=== PATIENT | male | born 1965 | race Caucasian/White ===

== ENCOUNTER 2020-11-21 14:42 | Emergency (ER) | payer OTHER, SELFPAY ==
[2020-11-21 14:59] VITALS: BP 146/73; PULSE 62; RESP 16; TEMP 36.8; O2SAT 98; BMI 33.5
--- NOTE | 2020-11-21 15:00 | XR_ITS ---
WS: [id number] Portable AP upright chest, 11/21/2020 Clinical Data: dyspnea/cough Comparison: None. Findings: No nodules, masses or effusions are seen. The heart is normal. The pulmonary vascularity is not increased. No pneumonia or pneumothorax is seen. XR/XR chest 1V portable [id number] Impression: Negative chest.
[2020-11-21 15:01] VITALS: BP 171/94; PULSE 69; O2SAT 97
[2020-11-21 16:00] VITALS: BP 139/70; PULSE 62; O2SAT 96
[2020-11-21 16:02] LABS: Urine Appearance Clear (CLEAR); Urine Color Yellow (Yellow)
[2020-11-21 16:03] LABS: Add Urine Microscopic? YES; Bilirubin Urine Neg (Negative); Blood Urine 2+ (Negative); Glucose Urine UA Norm (Normal); Ketones Urine 2+ (Negative); Leukocyte Esterase Urine Negative (Negative); Nitrate Urine Negative (Negative); Protein Urine Trace (Negative); Urobilinogen Urine Norm (Negative); pH Urine 5 (5-7)
[2020-11-21 16:04] LABS: Add Urine Culture? No; Bacteria Urine 1+ /hpf; Mucus Urine 3+ /hpf; RBC Urine 0-4 /hpf (0-2); Squamous Epithelial Cell Urine 0-4 /hpf (0-5)
--- NOTE | 2020-11-21 17:01 | ECG_ITS ---
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 Measurements Intervals [place] Rate: 52 P: 46 OR: 205 QRS: 17 QRSD: 83 T: 30 QT: 454 QTc: 425 Interpretive Statements SINUS BRADYCARDIA No previous ECG available for comparison Electronically Signed On 11-21-2020 18:56:05 CDT by Harish Hodges M.D. [id number]
[2020-11-21 17:07] LABS: Basophils % 0.2 %; Eosinophils % 0.1 %; Hematocrit 46.6 % (42.0-52.0); Hemoglobin 15.5 g/dL (11.7-16.6); Lymphocytes # 0.9 10^3/uL (0.8-4.8); Lymphocytes % 6.9 %; Mean Corpuscular HGB Conc 33.3 g/dL (30.0-36.0); Mean Corpuscular Hemoglobin 29.4 pg (28.0-34.0); Mean Corpuscular Volume 88.4 fL (80-94); Mean Platelet Volume 9.7 fL (7.4-10.4); Monocytes # 0.6 10^3/uL (0.2-0.9); Monocytes % 4.4 %; Neutrophils # 11.78 10^3/uL (1.8-7.7); Nucleated Red Blood Cells % 0 %; Platelet Count 209 10^3/cmm (130-400); Red Blood Count 5.27 10^6/uL (4.1-5.3); Red Cell Distribution Width 12.2 % (12.1-15.1); White Blood Count 13.4 10^3/uL (4.0-10.0)
--- NOTE | 2020-11-21 17:19 | ED_ITS ---
HPI - Abdominal Pain General: Chief Complaint: Abdominal Pain Stated Complaint: abd pain, flank pain, nausea Time Seen by Provider: 11/21/20 17:11 History of Present Illness: HPI narrative: Patient is a 55-year-old male who comes to the ED with abdominal pain. Patient was seen at [facility] and he was sent here to the ED to check for kidney stone. Pain started at around 10 AM this morning. He said it was not abrupt onset left flank pain. Said the pain comes around into the left lower quadrant of his abdomen. He took an ibuprofen and his pain has improved greatly. He says he rates his pain currently a 4 out of 10. Patient denies any history of kidney stones. He states he has had decreased urine output today but denies any hematuria. Denies fever, chills, chest pain, shortness of breath, nausea/vomiting or bowel symptoms. Associated Symptoms: Denies chills, constipation, diarrhea, dysuria, fever(s), hematochezia, hematuria, nausea and vomiting Review of Systems Const: Denies: fever(s), chills or fatigue Eyes: Denies: change in vision or eye discomfort ENMT: Denies: throat pain, odynophagia, nasal discharge or nasal congestion Card: Denies: chest pain, palpitations, edema, swelling of feet/ankles, dyspnea on exertion or orthopnea Resp: Denies: dyspnea, productive cough or non-productive cough GI: Reports: abdominal pain (LLQ); Denies: nausea, vomiting, diarrhea, constipation or hematochezia : Reports: flank pain (left) and oliguria; Denies: difficulty urinating, dysuria or hematuria Musc: Denies: neck pain, back pain or extremity swelling Skin/Breast: Denies: rash or new lesions Neuro: Denies: headache(s), numbness in extremities or weakness in extremities Physical Exam Narrative: EXAM NARRATIVE: Patient is a nontoxic-appearing 55-year-old male who is sitting comfortably on exam chair when I enter the room. He is showing no signs of any acute distress or pain. Const: COMMON NORMALS: no acute distress, patient oriented x3, healthy appearing and alert GENERAL APPEARANCE: cooperative and comfortable HENMT: COMMON NORMALS: normocephalic HEAD & SCALP: normocephalic MOUTH: Normal oral and palatal mucosa present THROAT: posterior oropharynx normal and uvula midline Neck/C-Spine: COMMON NORMALS: supple GENERAL: Yes normal visual inspection Resp: COMMON NORMALS: normal respiratory effort, No retractions, No use of accessory muscles and clear to auscultation bilaterally AUSCULTATION: clear to auscultation bilaterally Cardio: COMMON NORMALS: regular rate, regular rhythm, S1 normal heart sound present, S2 normal heart sound present, No gallops present (Cardio), No clicks present (Cardio), No murmurs present (Cardio) and Peripheral pulses 2+ throughout RATE: regular rate RHYTHM: regular rhythm HEART SOUNDS: S1 normal heart sound present and S2 normal heart sound present PERIPHERAL PULSES: Peripheral pulses 2+ throughout GI: COMMON NORMALS: Normal to inspection, nondistended, normoactive bowel sounds present, Soft to palpation and no masses PALPATION: Yes Soft to palpation and Yes Tenderness to palpation present (GI) Details: LLQ and other (left flank) : BLADDER/KIDNEY EXAM: Yes CVA tenderness on the left Back/Pelvis: GENERAL BACK: Yes CVA tenderness Extremity: COMMON NORMALS: normal to inspection Neuro: COMMON NORMALS: patient oriented x3 SENSORIUM/ORIENTATION: Yes alert GAIT: Yes Normal gait present Skin: GENERAL SKIN EXAM: dry skin Course Vital Signs: Vital signs: Vital Signs Temperature 98.2 F 11/21/20 14:59 Pulse Rate 64 11/21/20 19:22 Respiratory Rate 16 11/21/20 14:59 Blood Pressure 160/96 11/21/20 19:22 Pulse Oximetry 99 11/21/20 19:22 MDM - Abdominal Pain MDM Narrative: Medical decision making narrative: Patient is a 55-year-old male who comes to the ED with left flank pain. Patient appears nontoxic and is in no acute distress while here in the ED. He has some left flank and left CVA tenderness. White blood cell count 13 the rest of CBC and CMP were unremarkable. UA was positive for blood but no signs of any urinary tract infections. EKG showed sinus bradycardia, 52 bpm, no ST segment elevation or depression seen. CT of the abdomen showed 3 mm stone at the left UVJ. I placed an order with case management for patient to be referred to Dr. Cooper the urologist. Patient was given IV fluids, tamsulosin and Toradol while here in the ED. He was discharged home with a written prescription for hydrocodone, the pros and, Zofran and tamsulosin. He was told to strain urine to catch stone to bring to Dr. Cooper's office for further analysis. Return to ED precautions given. Told patient he will receive a call in the next couple days to get an appointment set up with Dr. Cooper. Patient understood agree with plan. Lab Data: Attestation: I reviewed the patient's lab results. Labs: Lab Results 11/21/20 11/21/20 11/21/20 Range/Units 15:06 16:58 16:58 WBC 13.4 H (4.0-10.0) 10^3/ uL RBC 5.27 (4.1-5.3) 10^6/u L Hgb 15.5 (11.7-16.6) g/dL Hct 46.6 (42.0-52.0) % MCV 88.4 (80-94) fL MCH 29.4 (28.0-34.0) pg MCHC 33.3 (30.0-36.0) g/dL RDW 12.2 (12.1-15.1) % Plt Count 209 (130-400) 10^3/c mm MPV 9.7 (7.4-10.4) fL Neut % (Auto) 88.0 % Lymph % (Auto) 6.9 % [place] % (Auto) 4.4 % Eos % (Auto) 0.1 % Baso % (Auto) 0.2 % Neut # (Auto) 11.78 H (1.8-7.7) 10^3/u L Lymph # (Auto) 0.9 (0.8-4.8) 10^3/u L [place] # (Auto) 0.6 (0.2-0.9) 10^3/u L Eos # (Auto) 0.0 (0.0-0.8) 10^3/u L Baso # (Auto) 0.0 (0.0-0.1) 10^3/u L Nucleated RBC % (a uto) 0 % Nucleated RBCs # 0.0 /100WBC Sodium 140 (136-145) mmol/L Potassium 4.4 (3.5-5.1) mmol/L Chloride 104 (98-107) mmol/L Carbon Dioxide 25 (22-29) mmol/L Anion Gap 15.4 (5-19) BUN 14 (6-20) mg/dL Creatinine 1.1 (0.7-1.2) mg/dL GFR Calculation 69.2 L (90-130) mL/min Glucose 98 (65-115) mg/dL Calculated Osmolal ity 290 (285-295) mOsm/k g Calcium 8.8 (8.5-10.5) mg/dL Total Bilirubin 0.9 (0.15-1.2) mg/dL AST 16 (0-40) U/L ALT 18 (0-41) U/L Alkaline Phosphata se 95 (40-130) IU/L Creatine Kinase 334 H* (39-308) U/L Troponin T Baselin e (0-15) ng/L Troponin T 120 Min [place] (0-15) ng/L Delta Troponin T (0-10) ABS# Total Protein 7.4 (6.6-8.7) g/dL Albumin 4.5 (3.5-5.2) g/dL Globulin 2.9 (1.3-4.6) g/dL Lipase 44 (13-60) U/L Urine Color Yellow (Yellow) Urine Appearance Clear (CLEAR) Urine pH 5 (5-7) Ur Specific Gravit y 1.030 (1.005-1.030) Urine Protein Trace (Negative) Urine Glucose (UA) Norm (Normal) Urine Ketones 2+ H (Negative) Urine Blood 2+ H (Negative) Urine Nitrate Negative (Negative) Urine Bilirubin Neg (Negative) Urine Urobilinogen Norm (Negative) mg/dL Ur Leukocyte Amanda ase Negative (Negative) Urine RBC 0-4 H (0-2) /hpf Urine WBC None (0-5) /hpf Ur Squamous Epith Cells 0-4 H (0-5) /hpf Amorphous Sediment Not Reportable Urine Bacteria 1+ H (NONE) /hpf Urine Mucus 3+ /hpf 11/21/20 11/21/20 Range/Units 16:58 18:52 WBC (4.0-10.0) 10^3/ uL RBC (4.1-5.3) 10^6/u L Hgb (11.7-16.6) g/dL Hct (42.0-52.0) % MCV (80-94) fL MCH (28.0-34.0) pg MCHC (30.0-36.0) g/dL RDW (12.1-15.1) % Plt Count (130-400) 10^3/c mm MPV (7.4-10.4) fL Neut % (Auto) % Lymph % (Auto) % [place] % (Auto) % Eos % (Auto) % Baso % (Auto) % Neut # (Auto) (1.8-7.7) 10^3/u L Lymph # (Auto) (0.8-4.8) 10^3/u L [place] # (Auto) (0.2-0.9) 10^3/u L Eos # (Auto) (0.0-0.8) 10^3/u L Baso # (Auto) (0.0-0.1) 10^3/u L Nucleated RBC % (a uto) % Nucleated RBCs # /100WBC Sodium (136-145) mmol/L Potassium (3.5-5.1) mmol/L Chloride (98-107) mmol/L Carbon Dioxide (22-29) mmol/L Anion Gap (5-19) BUN (6-20) mg/dL Creatinine (0.7-1.2) mg/dL GFR Calculation (90-130) mL/min Glucose (65-115) mg/dL Calculated Osmolal ity (285-295) mOsm/k g Calcium (8.5-10.5) mg/dL Total Bilirubin (0.15-1.2) mg/dL AST (0-40) U/L ALT (0-41) U/L Alkaline Phosphata se (40-130) IU/L Creatine Kinase (39-308) U/L Troponin T Baselin e 6 (0-15) ng/L Troponin T 120 Min [place] 6.00 (0-15) ng/L Delta Troponin T 0 (0-10) ABS# Total Protein (6.6-8.7) g/dL Albumin (3.5-5.2) g/dL Globulin (1.3-4.6) g/dL Lipase (13-60) U/L Urine Color (Yellow) Urine Appearance (CLEAR) Urine pH (5-7) Ur Specific Gravit y (1.005-1.030) Urine Protein (Negative) Urine Glucose (UA) (Normal) Urine Ketones (Negative) Urine Blood (Negative) Urine Nitrate (Negative) Urine Bilirubin (Negative) Urine Urobilinogen (Negative) mg/dL Ur Leukocyte Amanda ase (Negative) Urine RBC (0-2) /hpf Urine WBC (0-5) /hpf Ur Squamous Epith Cells (0-5) /hpf Amorphous Sediment Urine Bacteria (NONE) /hpf Urine Mucus /hpf Imaging Data ^: Other CT: Attestation: I personally reviewed and interpreted this imaging study as follows: Radiologist's impression: [employer] [address] [place] [address] CT Scan Report Signed Patient: Last Hidalgo Unit #: [id number] : 1965 Age/Sex: 55 / M ADM Date: 11/21/20 Loc: ER Room/Bed: Attending Dr: Ordering Provider/Ordering MD: Eric Jones Date of Service: 11/21/20 Procedure(s): CT kidney stone 86349 Accession Number(s): [id number] Report Number: [id number] PROCEDURE INFORMATION: Exam: CT Abdomen And Pelvis Without Contrast Exam date and time: 11/21/2020 5:44 PM Age: 55 years old Clinical indication: Abdominal pain; Flank; Left; Additional info: Left flank pain TECHNIQUE: Imaging protocol: Computed tomography of the abdomen and pelvis without contrast. Radiation optimization: All CT scans at this facility use at least one of these dose optimization techniques: automated exposure control; mA and/or kV adjustment per patient size (includes targeted exams where dose is matched to clinical indication); or iterative reconstruction. COMPARISON: No relevant prior studies available. RADIATION DOSE METRICS: Total DLP (mGy-cm): 1470.49 FINDINGS: Liver: Normal. No mass. Gallbladder and bile ducts: Normal. No calcified stones. No ductal dilation. Pancreas: Normal. No ductal dilation. Spleen: Normal. No splenomegaly. Adrenal glands: Normal. No mass. Kidneys and ureters: A tiny 3 mm renal stone is present at the left UVJ. Mild left hydronephrosis is appreciated. Left perinephric stranding is also noted. The right kidney appears normal. Stomach and bowel: Unremarkable. No obstruction. No mucosal thickening. Appendix: The appendix is normal. Intraperitoneal space: Unremarkable. No free air. No significant fluid collection. Vasculature: Unremarkable. No abdominal aortic aneurysm. Lymph nodes: Unremarkable. No enlarged lymph nodes. Urinary bladder: Unremarkable as visualized. Reproductive: Unremarkable as visualized. Bones/joints: Unremarkable. No acute fracture. Soft tissues: A small right indirect inguinal hernia containing fat is appreciated. CT/CT kidney stone [id number] IMPRESSION: Left UVJ 3 mm renal stone and mild left hydronephrosis. Radiation Dose CTDIVOL = (mGy): DLP = 1470.49 (mGy-cm) Dictated By: Noam Womack MD Signed By: Noam Womack MD Signed Date/Time: 11/21/201810 DD/ 09 EKG Data ^: EKG 1: Attestation: I personally reviewed and interpreted this EKG as follows: EKG interpretation date: 11/21/20 Interpretation: Normal sinus bradycardia, appropriate, no ST segment elevation or depression seen. Discharge Plan Discharge Patient Disposition: Home Clinical Impression: Kidney stone on left side Condition: Stable Prescriptions: New tamsulosin 0.4 mg capsule 0.4 mg PO DAILY Qty: 20 RF: 0 Zofran 4 mg tablet 4 mg PO Q8H Qty: 10 RF: 0 Naprosyn 500 mg tablet 500 mg PO BID PRN (Reason: pain) Qty: 10 RF: 0 No Action omeprazole 40 mg Capsule,Delayed Release(Dr/Ec) 40 mg PO DAILY PRN (Reason: Heartburn) RF: 0 Discharge Orders: Discharge ED (Routine); Ordered 11/21/20 Ordered By: Eric Jones Referrals: Reginald Malik [Primary Care Provider] - Discharge Diet: Regular Discharge Activity: Increase activity as tolerated Patient Instructions: Kidney Stones (ED), How to Strain Your Urine (ED), Opioid Safety Activity Restrictions/Additional Instructions: Follow-up with medical provider as directed. Case management should be contacting you in the next several days to set up an appointment with Dr. Cooper the urologist. Strain urine to catch stone and drink lots of fluid to stay hydrated and help pass stone. Take medications as prescribed. Return to the ER or your medical provider if condition worsens. Please read and understand discharge instructions. If any questions, please ask. Coding Level of Care Code ED Director Clinical Operations for Chg Fwd Exam Comprehensive
--- NOTE | 2020-11-21 17:28 | CTR_ITS ---
PROCEDURE INFORMATION: Exam: CT Abdomen And Pelvis Without Contrast Exam date and time: 11/21/2020 5:44 PM Age: 55 years old Clinical indication: Abdominal pain; Flank; Left; Additional info: Left flank pain TECHNIQUE: Imaging protocol: Computed tomography of the abdomen and pelvis without contrast. Radiation optimization: All CT scans at this facility use at least one of these dose optimization techniques: automated exposure control; mA and/or kV adjustment per patient size (includes targeted exams where dose is matched to clinical indication); or iterative reconstruction. COMPARISON: No relevant prior studies available. RADIATION DOSE METRICS: Total DLP (mGy-cm): 1470.49 FINDINGS: Liver: Normal. No mass. Gallbladder and bile ducts: Normal. No calcified stones. No ductal dilation. Pancreas: Normal. No ductal dilation. Spleen: Normal. No splenomegaly. Adrenal glands: Normal. No mass. Kidneys and ureters: A tiny 3 mm renal stone is present at the left UVJ. Mild left hydronephrosis is appreciated. Left perinephric stranding is also noted. The right kidney appears normal. Stomach and bowel: Unremarkable. No obstruction. No mucosal thickening. Appendix: The appendix is normal. Intraperitoneal space: Unremarkable. No free air. No significant fluid collection. Vasculature: Unremarkable. No abdominal aortic aneurysm. Lymph nodes: Unremarkable. No enlarged lymph nodes. Urinary bladder: Unremarkable as visualized. Reproductive: Unremarkable as visualized. Bones/joints: Unremarkable. No acute fracture. Soft tissues: A small right indirect inguinal hernia containing fat is appreciated. CT/CT kidney stone [id number] IMPRESSION: Left UVJ 3 mm renal stone and mild left hydronephrosis. Radiation Dose CTDIVOL = (mGy): DLP = 1470.49 (mGy-cm)
[2020-11-21 17:30] LABS: Troponin(5th) Baseline 6 ng/L (0-15)
[2020-11-21 17:34] LABS: Alanine Aminotransferase 18 U/L (0-41); Albumin Level 4.5 g/dL (3.5-5.2); Alkaline Phosphatase 95 IU/L (40-130); Anion Gap 15.4 (5-19); Aspartate Amino Transferase 16 U/L (0-40); Blood Urea Nitrogen 14 mg/dL (6-20); Calcium 8.8 mg/dL (8.5-10.5); Carbon Dioxide 25 mmol/L (22-29); Chloride 104 mmol/L (98-107); Globulin 2.9 g/dL (1.3-4.6); Glomerular Filtration Rate 69.2 mL/min (90-130); Glucose 98 mg/dL (65-115); Lipase 44 U/L (13-60); Osmolality Calculated 290 mOsm/kg (285-295); Potassium 4.4 mmol/L (3.5-5.1); Sodium 140 mmol/L (136-145); Total Bilirubin 0.9 mg/dL (0.15-1.2); Total Protein 7.4 g/dL (6.6-8.7)
[2020-11-21 17:39] LABS: Creatine Phosphokinase 334 U/L (39-308)
[2020-11-21] MEDS: sodium chloride 0.9% 1,000 ML 999 ML IV (17:58)
[2020-11-21 18:00] VITALS: BP 133/75; PULSE 58; O2SAT 98
[2020-11-21] MEDS: ketorolac 30 mg/mL INJ IVP (18:58)
[2020-11-21] MEDS: tamsulosin 0.4 mg Capsule PO (18:58)
[2020-11-21 19:22] VITALS: BP 160/96; PULSE 64; O2SAT 99
[2020-11-21 19:22] LABS: Troponin 5 2HR Delta 0 ABS# (0-10)
--- NOTE | 2020-11-22 09:39 | DCPLANNER ---
Addendum entered by Mercedes Perez 12/27/20 08:12: biostatistics manager called the office of Dr. Cooper to confirm if an appointment had been scheduled for patient. biostatistics manager spoke with Mayi was told that patient stated that they did not need appointment at this time. Original Note: biostatistics manager had message to schedule a follow up appointment for patient with Dr. Cooper for kidney stone. biostatistics manager called the office of Dr. Cooper, spoke with Mayi, gave clinic patients information. biostatistics manager was told that patients information would be printed and reviewed. Clinic will call patient with appointment information. Patient has [employer] insurance, correctional casework specialist will email patients information to September, with [employer] [facility] [employer] [facility], over a secure email so that the authorization process could be started for patient.
== END 2020-11-21 18:55 | disposition home or self-care (01) ==
PROVIDERS: Family Medicine; Nurse Practitioner Family; Emergency Provider Physician Assistant; PCP Family Medicine
DX: N20.0 Calculus of kidney (principal)
CPT/HCPCS: 36415; 71045; 74176; 80053; 81001; 82550; 83690; 84484; 85025; 93005; 96361; 96374; 96375; 96376; 99284; J1885; J7030

== ENCOUNTER 2023-01-25 20:00 | Outpatient (CLI) | payer OTHER, SELFPAY | END 2023-01-25 20:01 | disposition home or self-care (01) | LOC: SLEEP 01-26 06:25 | PROVIDERS: PCP Family Medicine; Visit Provider Family Medicine | DX: Z87.09 Personal history of other diseases of the respiratory system (principal) | CPT/HCPCS: 95811 ==

== ENCOUNTER 2023-11-25 10:55 | Emergency (ER) | payer OTHER, SELFPAY ==
[2023-11-25 11:03] VITALS: BP 143/84; PULSE 54; RESP 16; TEMP 36.5; O2SAT 96
--- NOTE | 2023-11-25 11:18 | XRR_ITS ---
PROCEDURE INFORMATION: Exam: XR Right Hand Exam date and time: 11/25/2023 11:27 AM Age: 58 years old Clinical indication: Injury or trauma; Other: Laceration to right thumb; Finger TECHNIQUE: Imaging protocol: Radiologic exam of the right hand. Views: 3 or more views. COMPARISON: No relevant prior studies available. FINDINGS: Bones/joints: No acute fracture or dislocation. Joint spaces are preserved. Soft tissues: No radiopaque foreign body. XR/XR hand RT min 3V* [id number] IMPRESSION: No acute fracture or dislocation.
--- NOTE | 2023-11-25 11:19 | ED_ITS ---
HPI - Wound/Laceration General: Chief Complaint: Wound/Laceration Stated Complaint: Thumb pain Time Seen by Provider: 11/25/23 11:14 Source: patient Mode of arrival: ambulatory Limitations: no limitations History of Present Illness: 58-year-old male states that yesterday h e did cut his right thumb with a band saw several laceration to the dorsal aspect of his right thumb bleeding controlled he states that last night he moved his thumb and he felt a pop states he is having a hard time extending his thumb now. He is up-to-date on his tetanus denies any other injuries Associated symptoms: Denies chills, fever(s), nausea or vomiting Review of Systems Const: Denies: fever(s), chills, body aches or change in appetite ENMT: Denies: throat pain or dental pain Card: Denies: chest pain Resp: Denies: dyspnea GI: Denies: abdominal pain, nausea, vomiting or diarrhea Musc: Reports: extremity pain; Denies: neck pain or back pain Skin/Breast: Denies: rash Neuro: Denies: headache(s) PFSH ED PFSH: Medical History Family history of melanoma Social History Smoking and tobacco/nicotine status: never used tobacco/nicotine Physical Exam Const: COMMON NORMALS: no acute distress, patient oriented x3 and healthy appearing HENMT: COMMON NORMALS: normocephalic and atraumatic HEAD & SCALP: normocephalic and atraumatic Neck/C-Spine: COMMON NORMALS: full ROM and supple Chest: COMMONS NORMALS: normal inspection of the chest Resp: COMMON NORMALS: normal respiratory effort Cardio: COMMON NORMALS: regular rate, regular rhythm and No murmurs present (Cardio) RATE: regular rate RHYTHM: regular rhythm Extremity: NARRATIVE EXTREMITY EXAM: 1 cm laceration proximal portion of righ t thumb on the dorsum aspect no bleeding at this time unable to visualize deep structures due to the laceration being small does have some weakness with extension of his thumb Neuro: COMMON NORMALS: patient oriented x3, moves all extremities and no focal motor deficits Psych: COMMON NORMALS: mental status grossly normal, Normal thought process present and cooperative THOUGHT PROCESS: Normal thought process present Skin: COMMON NORMALS: no rashes or lesions noted and no wounds GENERAL SKIN EXAM: no rashes or lesions noted Course 2 Vital Signs: Vital signs: Vital Signs Temperature 97.7 F 11/25/23 11:03 Pulse Rate 54 L 11/25/23 11:03 Respiratory Rate 16 11/25/23 11:03 Blood Pressure 143/84 11/25/23 11:03 Pulse Oximetry 96 11/25/23 11:03 MDM - Wound/Laceration Medical Decision Making Patient presents here with right thumb laceration exam is concerning for possible tendon damage unable to visualize tendon due to the small laceration did speak to orthopedist Dr. Simmons we will place in a thumb spica and he is to follow-up with Dr. Simmons. Medical Records I reviewed the patient's medical records. Lab Data I reviewed the patient's lab results. All radiology interpretation(s) finalized by discharge Discharge Plan Discharge Patient Disposition: Home Clinical Impression: Laceration of thumb Qualifiers: Encounter type: initial encounter Laterality: right Condition: Stable Prescriptions: No Action omeprazole 40 mg Capsule,Delayed Release(Dr/Ec) 40 mg PO DAILY PRN (Reason: Heartburn) Discharge Orders: Discharge ED (Routine); Ordered 11/25/23 Ordered By: Anne-Marie Gillespie Referrals: Shantanu Simmosn DO [Physician] - 1-3 days Reginald Malik [Primary Care Provider] - Discharge Diet: Advance as tolerated Discharge Activity: Resume usual activity Patient Instructions: Laceration (ED) Coding Level of Care Code ED Heel Cover Splitter for Akash Hall
--- NOTE | 2023-11-25 11:39 | DCPLANNER ---
er f/u message sent to ortho
[2023-11-25 11:59] VITALS: BP 138/82; PULSE 56; RESP 16; TEMP 36.5; O2SAT 98
== END 2023-11-25 11:59 | disposition home or self-care (01) ==
PROVIDERS: Emergency Provider Emergency Medicine; PCP Family Medicine
DX: S61.011A Laceration without foreign body of right thumb without damage to nail, initial encounter (principal); W27.0XXA Contact with workbench tool, initial encounter
CPT/HCPCS: 73130; 99283

== ENCOUNTER → 2023-11-30 10:48 | Outpatient (BNVA) | payer OTHER, SELFPAY | PROVIDERS: PCP Family Medicine; Referring Provider Emergency Medicine; Visit Provider Orthopaedic Surgery | DX: S61.011A Laceration without foreign body of right thumb without damage to nail, initial encounter (principal); W31.2XXA Contact with powered woodworking and forming machines, initial encounter | CPT/HCPCS: 99203 ==

== ENCOUNTER → 2023-12-02 06:48 | Outpatient (BNVA) | payer OTHER, SELFPAY | PROVIDERS: PCP Family Medicine; Visit Provider Student in an Organized Health Care Education/Training Program | DX: S61.011A Laceration without foreign body of right thumb without damage to nail, initial encounter (principal); X58.XXXA Exposure to other specified factors, initial encounter | CPT/HCPCS: 99204 ==

== ENCOUNTER 2023-12-08 07:20 | Day surgery (SDC) | payer OTHER, SELFPAY ==
[2023-12-08] VITALS (10 sets, daily range): BP systolic 127–167; BP diastolic 75–87; PULSE 46–60; RESP 12–20; TEMP 36.1–36.5; O2SAT 96–100; BMI 31.7
--- NOTE | 2023-12-08 | XR_ITS ---
WS: [id number] Exam: XR finger RT min 2V [id number] Date/Time of Exam: 12/08/2023 12:00 AM Reason For Exam: HEATHER PICS AP and lateral intraoperative images of the RIGHT thumb are submitted for evaluation. The images depict an orthopedic wire bridging the DIP joint of the thumb. Images were obtained for in traoperative visualization purposes.
[2023-12-08] MEDS: sodium chloride 0.9% 1,000 ML 30 ML IV (07:46)
[2023-12-08] MEDS: scopolamine 1.5 Patch 1 PATCH TRANSDERMA (07:52)
[2023-12-08] MEDS: ketorolac 30 mg/mL INJ IVP (07:59)
[2023-12-08] MEDS: acetaminophen 1,000 MG/100 ML PIGGYBACK 400 MG IV (07:59)
--- NOTE | 2023-12-08 08:21 | W.PM.OPSUD ---
Surgery/Procedure H&P Update DATE OF PROCEDURE: December 08, 2023 DATE H&P PERFORMED: 12/02/23 H&P UPDATE INFORMATION: I have reviewed H&P completed within last 30 days, I have examined patient prior to procedure and No changes to prior documentation PREOP DIAGNOSIS: Right thumb EPL tendon laceration PRIMARY INDICATION FOR PROCEDURE: Right thumb EPL tendon laceration PLANNED PROCEDURE: Operation Date: 12/08/23 09:05 Proposed Procedures p RIGHT THUMB EXTENSOR POLLICIS LONGUS versus(Right) - DO christopher Qiu EXTENSOR INDICIS PROPIUS TENDON TRANSFER(Right) - Jose Jones DO
--- NOTE | 2023-12-08 08:53 | ANES.PREANE2 ---
Pre-Anesthetic Assessment Height/Weight: Height 1.63 m Weight 83.915 kg Temp Pulse Resp BP Pulse Ox O2 Del Method 97.2 F L 58 L 16 151/77 98 Room Air 12/08/23 07:35 12/08/23 07:35 12/08/23 07:35 12/08/23 07:35 12/08/23 07:35 12/08/23 07:35 Preop Diagnosis: Right thumb EPL tendon laceration Operation Date: 12/08/23 09:05 Proposed Procedures p RIGHT THUMB EXTENSOR POLLICIS LONGUS versus(Right) - Jose San Patricio, DO s EXTENSOR INDICIS PROPIUS TENDON TRANSFER(Right) - Jose San Patricio, DO Familial anesthetic complications: none Was Beta Bashir taken within 24 hours: N/A Was Clonidine taken within 24 hours: N/A Last intake: Intake Last Liquid Date 12/07/23 Last Liquid Time 21:00 Last Solid Date 12/07/23 Last Solid Time 18:30 Social No alcohol and No tobacco Exam alert, oriented x 3, clear to auscultation bilaterally and regular rate & rhythm Airway Mallampati: Class III Dentition: full Pulmonary Sleep Apnea GI Gastroesophageal Reflux Disease Metabolic Hyperlipidemia Anesthetic Plan ASA status: 3 Anesthesia: Choice Risk of > 500 ml blood loss (7ml/kg in children): No Medications/Allergies Home Medications Medication Instructions Recorded Confirmed Last Taken Type omeprazole 40 mg capsule,delayed 40 mg PO DAILY PRN Heartburn 11/21/20 12/07/23 Unknown History release atorvastatin 40 mg tablet 40 mg PO DAILY 12/02/23 12/07/23 12/07/23 History cephalexin 500 mg capsule 500 mg PO TID 10 days #30 caps 12/02/23 12/07/23 12/08/23 Rx meloxicam 15 mg tablet 15 mg PO DAILY 12/02/23 12/07/23 12/01/23 History methocarbamol 500 mg tablet 500 mg PO TID PRN muscle spasms 12/02/23 12/07/23 Unknown History trazodone 50 mg tablet 50 mg PO BEDTIME 12/02/23 12/07/23 12/06/23 History Allergies Allergy/AdvReac Type Severity Reaction Status Date / Time No Known Allergies Allergy Verified 12/08/23 07:30 Current Medications Generic Name Dose Route Start Last Admin Trade Name Freq PRN Reason Stop Dose Admin Sodium Chloride 1,000 mls @ 30 mls/hr 12/08/23 07:30 12/08/23 07:46 Sodium Chloride 0.9% IV 12/09/23 07:29 30 mls/hr .Q24H LEIGHANN Administration PFSH Anesthesia Medical History Family history of melanoma Social History Smoking and tobacco/nicotine status: never used tobacco/nicotine Data Anesthesia Cardiac Studies: No Data to Display
[2023-12-08] MEDS: ceFAZolin 2,000 MG in sodium chloride 0.9% (plus) 50 ML 100 MG IV (09:07)
[2023-12-08] MEDS: lidocaine 2% INJ 20 mL 10 ML INJECTION (09:30)
[2023-12-08] MEDS: ROPivacaine 0.5% SDV 30 mL 50 MG INJECTION (09:30)
--- NOTE | 2023-12-08 09:57 | W.PM.BPON ---
Date of Procedure: 12/08/2023 Surgeon: Jose Jones DO Film Developing Machine Operator(s): Eric Jones PA-C Procedure(s) performed: Right thumb EPL tendon repair Right thumb DIP joint closed reduction percutaneous pinning Findings of the procedure(s): Patient was found to have a right thumb EPL tendon repair over the DIP joint over zone 2 thumb extensor tendon injury. Patient tendon not retracted and was mobile enough for an end-to-end repair underwent a standard tendon repair with close reduction percutaneous pinning of the DIP joint to protect the tendon repair, patient placed in a thumb spica splint and taken to PACU in stable condition. Estimated blood loss: 5 mL Specimen(s) removed: None Post-operative diagnosis: Right thumb EPL tendon laceration zone 2
--- NOTE | 2023-12-08 09:59 | P.OP_ITS ---
Operative Report Date of procedure: December 08, 2023 Pre-op diagnosis: Right thumb EPL tendon laceration Post-op diagnosis: Right thumb EPL tendon laceration zone 2 Procedure done: Right thumb EPL tendon repair Right thumb DIP joint closed reduction percutaneous pinning Implants: 0.45 K wire x 1 4-0 FiberWire Surgeon: Jose Jones DO Forge Hand: Eric Jones PA-C: PA was necessary for assistance in this case with hand positioning to execute the procedure, retraction and protection of neurovascular structures as well as to assist with wound closure and dressing application. Anesthesia: MAC and Local Estimated blood loss: 5 mL IV fluids: See anesthesia record Complications: None Findings: See operative report narrative Condition: stable Disposition: same day Brief History: Patient is a pleasant 58-year-old gentleman sustained a laceration zone 2 over the dorsal aspect of right thumb. He tried to lift something later that day and subsequently felt a pop and unable to extend his IP joint of his right thumb. Was seen originally by one of my partners referred to me and I saw him last week and patient was found to have findings consistent with an EPL tendon laceration we talked about treatment options for his nonoperative and operative invention. 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 Through shared decision-making elects proceed with surgical intervention of her right thumb EPL tendon repair versus possible EIP to EPL tendon transfer if tendon is too far retracted and unable for direct direct repair. Patient understands the ins and outs procedure risk benefits complication alternatives surgery and through shared decision make elects proc eed with surgical intervention all questions answered this time. Procedure: Patient seen eval in the preoperative holding area. Consent was reviewed and signed with patient. Correct extremity was then subsequently marked. Patient then was seen evaluate by anesthesia once cleared for surgery was taken back to the operative suite placed in supine position all bony prominences well-padded patient appropriate secured to the bed. Armboard applied to the right upper extremity. Underwent anesthesia per the anesthesia department once properly anesthetized the nonsterile tourniquet was applied to the right upper arm. Patient right upper extremity was then prepped and draped standard orthopedic fashion. Final timeout performed. Patient received appropriate preoperative antibiotics. Esmarch tourniquet was used sanguine a right upper extremity tourniquet was insufflated 250 mmHg. I then performed a standard local block around the right thumb under sterile technique At this point in time I then extended patient's previous laceration over zone 2 and made a Jose Antonio chevron incision proximally heading toward the radial aspect of the proximal phalanx. I was able to Littler dissection scissors and spread and protect all neurovascular structures I subsequently came down directly over a complete laceration of the EPL tendon at zone 2 there was minimal tendon retraction this was laying right in line for direct repair. I used synovial rongeur as well as sharp scalpel excision to prep the tendon edges as well as to debride off any synovial nonviable tissue that would impede repair. I then subsequently utilized 4-0 FiberWire while my fws faculty assistant held in extension and did a total of 3 [id number] stitches with this for a set of ultimately 6 separate core strand sutures. I then used a 6-0 Prolene epitendinous stitch. This completed my repair and I took the finger through tenodesis effect of extension and patient had excellent maintenance of his repair. 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 This was done under fluoroscopic imaging center center position in the distal phalanx and in retrograde fashion went across the DIP joint holding this in extension to protect my repair and into the proximal phalanx. This was then confirmed to be in appropriate position on AP and lateral's with fluoroscopic imaging subsequently bent cut and capped the tip of the K wire. Tourniquet deflated hemostasis satisfactory thorough irrigation performed patient then subsequently was closed in standard interrupted nylon suture fashion. Patient was then placed in a bulky soft dressing of Xeroform 4 x 4's fluffs Curlex thumb spica and an Ravin wrap. Patient tolerated procedure well without any issues or complications. Patient was taken to PACU in stable condition. Disposition: Patient taken back in stable condition recovering well received appropriate postoperative pain medication as well as postoperative discharge instructions. Patient understands and agrees with current plan. All questions answered. Will maintain splint until follow-up.
--- NOTE | 2023-12-08 10:18 | PM.PACU ---
PACU note Narrative: Patient is a 58-year-old male just underwent a right thumb extensor tendon repair. Patient transferred to PACU in stable condition. Pain is well controlled. Dressing on hand is dry and in place. Patient's fingers are warm and well-perfused. Patient can wiggle fingers. normal cap refill under 2 seconds. Patient has normal elbow range of motion. Patient able to feel light touch on hand. Exam: awake Disposition: discharged
--- NOTE | 2023-12-08 11:30 | ANE.PACU2 ---
Inpatient post-anesthesia follow up: Airway intact: Yes Vital signs: Temperature 97 F Pulse Rate 50 Respiratory Rate 16 Blood Pressure 127/75 Pulse Oximetry 98 Oxygen Delivery Me thod Room Air Oxygen Flow Rate 6 Fraction of Inspir ed Oxygen Hydration adequate: Yes Nausea and vomiting: No Pain level: 1 Mental status: Baseline
== END 2023-12-08 11:32 | disposition home or self-care (01) ==
PROVIDERS: PCP Family Medicine; Visit Provider Student in an Organized Health Care Education/Training Program
PROC: (CPT 26418; principal; 2023-12-08 08:55)
DX: S62.221A Displaced Rolando's fracture, right hand, initial encounter for closed fracture (principal); X58.XXXA Exposure to other specified factors, initial encounter; G47.30 Sleep apnea, unspecified; E78.5 Hyperlipidemia, unspecified
CPT/HCPCS: 26418; 26727; 73140; 76000; C1713; J0131; J0690; J1885; J2250; J2704; J2795; J7030

== ENCOUNTER 2023-12-28 06:00 | Outpatient (CLI) | payer OTHER, SELFPAY | END 2023-12-28 23:59 | disposition home or self-care (01) | PROVIDERS: PCP Family Medicine; Visit Provider Student in an Organized Health Care Education/Training Program | DX: Z46.89 Encounter for fitting and adjustment of other specified devices (principal); S61.011D Laceration without foreign body of right thumb without damage to nail, subsequent encounter; X58.XXXD Exposure to other specified factors, subsequent encounter | CPT/HCPCS: 97760; 99024; L3807 ==

== ENCOUNTER → 2024-01-12 07:07 | Outpatient (BNVA) | payer OTHER, SELFPAY | PROVIDERS: PCP Family Medicine; Visit Provider Physician Assistant | DX: Z98.890 Other specified postprocedural states (principal) | CPT/HCPCS: 73140; 99213 ==

== ENCOUNTER 2024-01-12 09:18 | Outpatient (CLI) | payer OTHER, SELFPAY | END 2024-01-12 09:19 | disposition home or self-care (01) | LOC: SPT 09:18 | PROVIDERS: PCP Family Medicine; Visit Provider Physician Assistant | DX: Z47.89 Encounter for other orthopedic aftercare (principal); Z98.890 Other specified postprocedural states | CPT/HCPCS: 97760; L3923 ==